=== PATIENT | female | born 1985 | race Caucasian/White ===

== ENCOUNTER 2019-12-13 07:00 | Inpatient (IN) ==
[2019-12-13] MEDS ORDERED: EPHEDrine 50 MG/ML VIAL IVP PRN (08:23)
[2019-12-13] MEDS ORDERED: Epidural Premix (fent/bupiv) 110 ML EP SCH (08:30)
[2019-12-13] MEDS ORDERED: Metoclopramide 10 MG/2 ML VIAL IVP PRN (08:59)
[2019-12-13] MEDS ORDERED: *HR* FentaNYL (PF) 100 MCG/2 ML VIAL IVP PRN (08:59)
[2019-12-13] MEDS ORDERED: Famotidine 20 MG/2 ML VIAL IVP PRN (08:59)
[2019-12-13] MEDS ORDERED: Naloxone 0.4 MG/ML INJ IVP PRN (08:59)
[2019-12-13] MEDS ORDERED: Ringers Solution, Lactated 1,000 ML IVC SCH (09:00)
[2019-12-13 09:15] LABS: Basophils % 0.2 %; Eosinophils # 0.1 K/mcL (0.0-0.6); Eosinophils % 1.5 %; Hematocrit 35.4 % (35.3-44.9); Hemoglobin 11.5 g/dL (11.5-15.4); Immature Granulocytes % 0.5 % (0-4); Lymphocytes # 1.3 K/mcL (0.6-4.6); Lymphocytes % 14.9 %; Mean Corpuscular HGB Conc 32.5 g/dL (31.6-35.5); Mean Corpuscular Hemoglobin 29.7 pg (28.0-33.3); Mean Corpuscular Volume 91.5 fL (83.0-100.0); Mean Platelet Volume 10.4 fL (9.4-12.4); Monocytes # 1.1 K/mcL (0.0-1.3); Monocytes % 12.4 %; Neutrophils # 6.1 K/mcL (1.6-8.9); Platelet Count 255 K/mcL (140-400); Red Blood Count 3.87 M/mcL (3.82-4.97); Red Cell Distribution Width 13.9 % (11.5-14.5); Segmented Neutrophils % 70.5 %; White Blood Count 8.7 K/mcL (4.3-11.1)
[2019-12-13] MEDS ORDERED: Ringers Solution, Lactated 1,000 ML ONE (09:21)
[2019-12-13] MEDS ORDERED: Oxytocin 20 units/ LR 1000 mL 20 UNIT/1,000 ML BAG IVC ONE (09:21)
[2019-12-13] MEDS: Oxytocin 20 units/ LR 1000 mL 20 UNIT/1,000 ML BAG IVC SCH ×2 (09:32→14:29)
[2019-12-13 10:07] LABS: Amphetamine Screen,Urine Negative ng/mL (Cutoff=1000); Barbiturate Screen,Urine Negative ng/mL (Cutoff=200); Benzodiazepines Screen,Urine Negative ng/mL (Cutoff=200); Cannabinoid Screen,Urine Negative ng/mL (Cutoff = 50); Cocaine Screen,Urine Negative ng/mL (Cutoff= 300); Opiate Screen,Urine Negative ng/mL (Cutoff=300); Phencyclidine Screen,Urine Negative ng/mL (Cutoff=25)
[2019-12-13] MEDS ORDERED: Sodium Bicarbonate 50 MEQ/50 ML VIAL ONE (12:32)
[2019-12-13] MEDS ORDERED: Lidocaine/EPI 1:200k 2% PF 20 ML VIAL ONE (12:32)
[2019-12-13] MEDS ORDERED: Lidocaine 1% 20 ML MDV ONE (12:46)
[2019-12-13] MEDS ORDERED: Oxytocin 20 units/ LR 1000 mL 20 UNIT/1,000 ML BAG IVC SCH (16:38)
[2019-12-13] MEDS: Acetaminophen 325 MG TABLET PO SCH (21:06)
[2019-12-13] MEDS: Ibuprofen 600 MG TABLET PO SCH (21:07)
[2019-12-14] MEDS: Ibuprofen 600 MG TABLET PO SCH ×2 (00:31→05:33)
[2019-12-14] MEDS: Acetaminophen 325 MG TABLET PO SCH ×2 (00:32→05:34)
[2019-12-14 07:47] VITALS: BP 112/69
[2019-12-14] MEDS ORDERED: Prenatal Vit/FA 1 EACH TABLET PO SCH (09:00)
== END 2019-12-14 15:10 | disposition home or self-care (01) | DRG 807 ==
LOC: 1NENULAB 07:07 → 1NENUOBS 15:56
PROVIDERS: ADMIT Obstetrics & Gynecology; ATTEND Obstetrics & Gynecology